=== PATIENT | female | born 1995 | race Asian ===

== ENCOUNTER → 2019-01-15 | Outpatient (CLI) | payer BC | END | disposition home or self-care (01) | LOC: LAB 07:22 | PROVIDERS: ATTEND Internal Medicine | DX: R73.03 Prediabetes (principal); E03.9 Hypothyroidism, unspecified; E78.5 Hyperlipidemia, unspecified; E55.9 Vitamin D deficiency, unspecified | CPT/HCPCS: 80053; 80061; 82306; 83036; 84436; 84443; 85025 ==